=== PATIENT | female | born 1940 | race Caucasian/White ===

== ENCOUNTER 2022-01-30 10:04 | Emergency (ER) | payer MEDICARE ==
[~2022-01-30] VITALS: Ht 170 cm; Wt 90.0 kg
[2022-01-30 10:07] VITALS: BP 179/92
[2022-01-30] MEDS ORDERED: fentaNYL INJ 100 MCG/2 ML AMP IM STA (10:15)
--- NOTE | 2022-01-30 10:15 | ED Upper Extremity ---
General Stated Complaint: FALL, RT HAND INJ History of Present Illness Date Seen by Provider: Jan 30, 2022 Time Seen by Provider: 10:10 Initial Comments 81-year-old female presents with right hand injury. Patient reports that she was walking yesterday missed a step and fell hit a wooden floor. Patient complains of pain diffusely in her right hand and her right wrist. She also has a little bit of a black eye and some mild swelling but does not want to have that evaluated. Patient is out here because "she needs a shot because it hurts" patient has pain with full range of motion and some swelling of the hand Allergies and Home Medications Allergies Coded Allergies: meloxicam (Verified Allergy, Unknown, 01/30/22) Patient Home Medication List Home Medication List Reviewed: Yes Review of Systems Constitutional: No chills, No fever EENTM: see HPI Respiratory: no symptoms reported Cardiovascular: no symptoms reported Genitourinary: no symptoms reported Musculoskeletal: see HPI Skin: see HPI Psychiatric/Neurological: No Symptoms Reported Physical Exam Vital Signs Vital Signs - First Documented 01/30/22 10:07 Temp 36.8 Pulse 75 Resp 16 B/P (MAP) 179/92 (121) Pulse Ox 94 O2 Delivery Room Air Capillary Refill : Height, Weight, BMI Height: '" Weight: lbs. oz. kg; BMI Method: General Appearance: WD/WN, no apparent distress HEENT: other (Mild contusion right eyebrow and periorbital region) Neck: full range of motion, supple Respiratory: lungs clear, normal breath sounds Gastrointestinal: non tender, soft Elbow/Forearm: normal inspection Wrist: Yes ecchymosis, Yes soft tissue tenderness, Yes swelling Hand: Right, ecchymosis, limited ROM, soft tissue tenderness, swelling Neurologic/Psychiatric: alert, normal mood/affect, oriented x 3 Progress/Results/Core Measures Results/Orders My Orders Orders - ARLENE TAVERA DO Fentanyl Inj (Sublimaze Injection) (01/30/22 10:15) Tramadol Tablet (Ultram Tablet) (01/30/22 10:15) Hand 3 View Right (01/30/22 10:15) Wrist 3 View Right (01/30/22 10:15) Ortho Glass (01/30/22 10:29) Vital Signs/I&O 01/30/22 10:07 Temp 36.8 Pulse 75 Resp 16 B/P (MAP) 179/92 (121) Pulse Ox 94 O2 Delivery Room Air Progress Progress Note : Progress Note Patient with a right distal radius fracture. She will be placed in a splint, given Lortab for pain. She should follow-up with [facility] in approximately 1 week for recheck of symptoms and casting. Patient stable and discharged home Diagnostic Imaging Diagonstic Imaging: Xray Plain Films/CT/US/NM/MRI: other Comments Date of Exam:01/30/22 WRIST 3 VIEW RIGHT INDICATION: Fall with right wrist pain. TECHNIQUE: Three views of the right wrist were obtained. FINDINGS: There is a fracture of the distal radius with apparent intra-articular extension, best seen on the lateral view. The distal ulna appears intact. There is no displacement or angulation identified. The carpus demonstrates triscaphe and 1st MCP joint degenerative changes. No other fracture is seen. IMPRESSION: Intra-articular, nondisplaced distal radius fracture. Departure Impression Primary Impression: Fracture of radius Qualified Codes: S52.501A - Unspecified fracture of the lower end of right radius, initial encounter for closed fracture Disposition: HOME, SELF-CARE Condition: Stable Departure-Patient Inst. Patient Instructions: Wrist Fracture (DC) Add. Discharge Instructions: keep right arm elevated ice 20 minutes 3-4 times daily call [facility] office to arrange follow up Scripts Hydrocodone/Acetaminophen (Hydrocodone-Acetamin 5-325 mg) 5 Mg-325 Mg Tablet 1 TAB PO Q8H PRN for PAIN-MODERATE (5-7), #10 TAB 1/2 half to 1 pill every 8 hrs as needed for pain Prov: ARLENE TAVERA DO 01/30/22 ARLENE TAVERA DO Jan 30, 2022 10:14
--- NOTE | 2022-01-30 10:32 | Diagnostic Imaging Report ---
INDICATION: Fall with right wrist pain. TECHNIQUE: Three views of the right wrist were obtained. FINDINGS: There is a fracture of the distal radius with apparent intra-articular extension, best seen on the lateral view. The distal ulna appears intact. There is no displacement or angulation identified. The carpus demonstrates triscaphe and 1st MCP joint degenerative changes. No other fracture is seen. IMPRESSION: Intra-articular, nondisplaced distal radius fracture. Dictated by: Dictated on workstation # [id number]
--- NOTE | 2022-01-30 10:35 | Diagnostic Imaging Report ---
INDICATION: Fall with right hand pain. TIME OF EXAM: 10:23 a.m. FINDINGS: Slightly impacted intraarticular fracture of the distal radius is again noted. The carpal bones are intact. Metacarpals and phalanges are intact. There are degenerative changes involving multiple interphalangeal joints. There appears to be some soft tissue swelling along the dorsum of the hand and wrist. IMPRESSION: Distal radius fracture. No hand fracture is detected. There is generalized soft tissue swelling. Dictated by: Dictated on workstation # [id number]
[2022-01-30] MEDS ORDERED: ACHD5005 PO (10:36)
== END 2022-01-30 10:55 | disposition home or self-care (01) ==
LOC: EDUNIT# 10:04 → ER FS 10:08
DX: S52.571A Other intraarticular fracture of lower end of right radius, initial encounter for closed fracture (principal); S00.11XA Contusion of right eyelid and periocular area, initial encounter; W22.8XXA Striking against or struck by other objects, initial encounter
CPT/HCPCS: 29125; 73110; 73130